=== PATIENT | female | born 2005 | race Caucasian/White ===

== ENCOUNTER → 2024-06-24 10:34 | Outpatient (REF) | payer BC, OTHER, SELFPAY ==
[2024-06-26 20:44] LABS: Macadamia Nut <0.10 kU/L (<=0.34); Pecan Nut <0.10 kU/L (<=0.34); Walnut/Black Walnut <0.10 kU/L (<=0.34)
== END ==
LOC: HWLAB 10:34
PROVIDERS: ATTENDING PHYSICIAN Allergy & Immunology; FAMILY PHYSICIAN Nurse Practitioner Adult Health
DX: T78.05XA Anaphylactic reaction due to tree nuts and seeds, initial encounter (principal)
CPT/HCPCS: 36415; 86003

== ENCOUNTER → 2024-06-30 10:38 | Outpatient (REF) | payer BC, OTHER, SELFPAY ==
[2024-06-30 12:38] LABS: % Basophils 0.4 % (0-2); % Eosinophils 1.4 % (0-6); % Lymphocytes 38.1 % (20.5-51.1); % Monocytes 6.1 % (1.7-9.3); Absolute Eosinophils 0.1 10^3/uL (0-0.7); Absolute Lymphocytes 1.9 10^3/uL (1.2-3.4); Absolute Monocytes 0.3 10^3/uL (0.1-0.6); Absolute Neutrophils 2.7 10^3/uL (1.4-6.5); Hematocrit 38.2 % (37.0-47.0); Hemoglobin 13.5 g/dL (12.0-16.0); Mean Corp Hgb Conc. 35.3 g/dL (33.0-37.0); Mean Corpuscular Hgb 32.4 pg (27.0-31.0); Mean Corpuscular Volume 91.6 fL (81.0-99.0); Mean Platelet Volume 10.6 fL (7.4-10.4); Nucleated Red Blood Cells % 0 %; Platelet Count 210 10^3/uL (130-400); Red Blood Cell Count 4.17 10^6/uL (4.20-5.40); Red Cell Dist. Width 11.6 % (11.5-14.5); White Blood Cell Count 5.1 10^3/uL (4.8-10.8)
[2024-06-30 13:31] LABS: ALT (SGPT) 15 U/L (0-35); AST (SGOT) 27 U/L (14-36); Albumin 4.8 g/dl (3.5-5.0); Alkaline Phosphatase 67 U/L (38-126); Blood Urea Nitrogen 17 mg/dl (7-17); Calcium 9.3 mg/dl (8.4-10.2); Carbon Dioxide 27 mmol/L (22-30); Chloride 104 mmol/L (98-107); Glucose 81 mg/dl (70-99); HDL Cholesterol 57 mg/dl; LDL Cholesterol, Calculated 83 mg/dl; Potassium 4.2 mmol/L (3.5-5.1); Sodium 138 mmol/L (135-145); Total Bilirubin 0.9 mg/dl (0.2-1.3); Total Cholesterol 156 mg/dl (50-199); Total Protein 7.4 g/dl (6.3-8.2); Triglyceride 81 mg/dl (10-149); Very Low Density Lipoprotein 16 mg/dl (0-30); eGFR > 60.00
[2024-06-30 14:01] LABS: TSH Reflex To Free T4 5.85 uIU/ml (0.47-4.68)
[2024-06-30 14:10] LABS: Urine Albumin Negative (Neg - Trace); Urine Bilirubin Negative (Negative); Urine Character Clear (Clear); Urine Color Yellow; Urine Glucose Negative (Negative); Urine Ketone Negative (Negative); Urine Leukocyte Negative (Negative); Urine Nitrite Negative (Negative); Urine Occult Blood Negative (Negative); Urine Urobilinogen Negative (Neg - 1+)
[2024-06-30 14:29] LABS: Free T4 0.97 ng/dl (0.78-2.19)
== END ==
LOC: HWLAB 10:38
PROVIDERS: ATTENDING PHYSICIAN Nurse Practitioner Adult Health
DX: Z00.01 Encounter for general adult medical examination with abnormal findings (principal)
CPT/HCPCS: 36415; 80053; 80061; 81003; 84439; 84443; 85025

== ENCOUNTER → 2024-10-15 10:12 | Outpatient (REF) | payer BC, OTHER, SELFPAY ==
[2024-10-15 13:39] LABS: TSH 3.98 uIU/ml (0.47-4.68)
[2024-10-16 16:16] LABS: Thyroglobulin Antibodies <0.9 IU/mL (0.0-4.0); Thyroid Peroxidase Ab (TPO) 0.4 IU/mL (0.0-9.0)
== END ==
LOC: HWLAB 10:12
PROVIDERS: ATTENDING PHYSICIAN Nurse Practitioner Adult Health
DX: E03.8 Other specified hypothyroidism (principal)
CPT/HCPCS: 36415; 84439; 84443; 86376; 86800